=== PATIENT | male | born 1955 | race Caucasian/White ===

== ENCOUNTER 2023-10-07 14:39 | Outpatient (CLI) | payer OTHER | END 2023-10-07 15:00 | disposition home or self-care (01) | LOC: TOM 14:39 | PROVIDERS: ATTEND Orthopaedic Surgery | DX: M25.572 Pain in left ankle and joints of left foot (principal); S82.875A Nondisplaced pilon fracture of left tibia, initial encounter for closed fracture ==

== ENCOUNTER 2024-02-09 11:48 | Outpatient (CLI) | payer OTHER | END 2024-02-09 11:58 | disposition home or self-care (01) | LOC: RAD 11:48 | PROVIDERS: ATTEND Orthopaedic Surgery | DX: S82.875D Nondisplaced pilon fracture of left tibia, subsequent encounter for closed fracture with routine healing (principal) ==